=== PATIENT | female | born 1975 | race Two or more races ===

== ENCOUNTER 2024-07-25 18:54 | Emergency (ER) | payer MEDICAID, OTHER ==
[~2024-07-25] VITALS: Ht 167.6 cm; Wt 125.4 kg
[2024-07-25 20:49] VITALS: BP 143/81; PULSE 84; RESP 19; TEMP 97.6; O2SAT 99
--- NOTE | 2024-07-25 21:19 | ED.PDOC ---
Back pain HPI HPI Comments This is a 48-year-old female presents to the ED chief complaint acute on chronic low back pain. Patient states over the past week her back pain has gotten worse describes as by lower pain achy burning in nature nonradiating 8/10 on pain scale. She states history of chronic pain was supposed to follow up with her PCP however her PCP and has not follow up with another. He does report x-rays in the past, she was scheduled for an MRI but never obtained it. She does state she is currently homeless [place] with her son she does states the reason why her back pain is increase he is cautioned not lying on a bed and because of the cold weather. She denies any known injury, numbness, weakness, loss of bowel bladder control, or saddle anesthesia. She is taking Tylenol right now for the pain reports no relief. She states was on meloxicam in the past with little to no relief. Chief Complaint: Back Pain Time Seen by MD: 19:41 Reviewed Notes: Payroll Bookkeeper Notes, Medications, Allergies Allergies: Coded Allergies: Penicillins (Verified Allergy, Unknown, 07/25/24) Home Meds Active Scripts Methylprednisolone (Medrol Dosepak) 4 Mg [place], 4 MG PO UD for 6 Days, #21 TAB UAD Prov:ANUJA VALLE [facility] 07/25/24 Tizanidine Hydrochloride (Zanaflex) 4 Mg Cap, 1 CAP PO QPM PRN for 7 Days, #30 CAP Prov:ANUJA VALLE [facility] 07/25/24 Information Source: Patient Mode of Arrival: Ambulatory Constitutional: denies: chills, diaphoresis, fatigue, fever, malaise, sweats, weakness, others EENTM: denies: blurred vision, double vision, ear bleeding, ear discharge, ear drainage, ear pain, ear ringing, eye pain, eye redness, hearing loss, mouth pain, mouth swelling, nasal discharge, nose bleeding, nose congestion, nose pain, photophobia, tearing, throat pain, throat swelling, voice changes, others Respiratory: denies: cough, hemoptysis, orthopnea, SOB at rest, shortness of breath, SOB with excertion, stridor, wheezing, others Cardiovascular: denies: chest pain, dizzy spells, diaphoresis, Dyspnea on exertion, edema, irregular heart beat, left arm pain, lightheadedness, palpitations, PND, syncope, others Gastrointestinal: denies: abdomen distended, abdominal pain, blood streaked bowels, constipated, diarrhea, dysphagia, difficulty swallowing, hematemesis, melena, nausea, poor appetite, poor fluid intake, rectal bleeding, rectal pain, vomiting, others Genitourinary: denies: abnormal vagina bleeding, burning, dyspareunia, dysuria, flank pain, frequency, hematuria, incontinence, pain, , vagina discharge, urgency, others Neurological: denies: dizziness, fainting, headache, left sided numbness, left sided weakness, numbness, paresthesia, pre-existing deficit, right sided numbness, right sided weakness, seizure, speech problems, tingling, tremors, weakness, others Musculoskeletal: reports: back pain; denies: gout, joint pain, joint swelling, muscle pain, muscle stiffness, neck pain, others Integumetry: denies: bruises, change in color, change in hair/nails, dryness, laceration, lesions, lumps, rash, wounds, others Allergic/Immunocompromised: denies: Difficulty Healing, Frequent Infections, Hives, Itching, others Hematologic/Lymphatic: denies: anemia, blood clots, easy bleeding, easy bruising, swollen glands, others Endocrine: denies: excessive hunger, excessive sweating, excessive thirst, excessive urination, flushing, intolerance to cold, intolerance to heat, unexplained weight gain, unexplained weight loss, others Psychiatric: denies: anxiety, bipolar disorder, depression, hopeless, panic disorder, schizophrenia, sleepless, suicidal, others Physical Exam General Appearance: No Apparent Distress, Normal HEENT: Normal ENT Inspection, Pharynx Normal, TMs Normal Neck: Full Range of Motion, Non-Tender Respiratory: Lungs Clear, No Respiratory Distress, Normal Breath Sounds Cardiovascular: No Murmur, Normal Peripheral Pulses, Regular Rate/Rhythm Breast Exam: Deferred Gastrointestinal: No Organomegaly, Non Tender, No Pulsatile Mass, Normal Bowel Sounds, Soft Genitalia: Deferred Pelvic: Deferred Rectal: Deferred Extremities: Normal capillary refill, Normal inspection, Normal range of motion, Non-tender, Pedal edema (Bilateral nonpitting) Musculoskeletal : Location: Bilateral Extremity Location: Back (Moderate tenderness and spasms along paraspinal muscles L1 through L5. No noted abrasions, ecchymosis, lesions or lacerations. No tenderness palpated over L1 through L5 spine without crepitus or step-offs. Negative straight leg raise bilateral. Strength sensory and motion intact positive pedal pulses.) Apperance: Normal Neurologic: Alert, chicken boner II-XII nml as Tested, No Motor Deficits, Normal Affect, Normal Mood, No Sensory Deficits Cerebellar Function: Normal Reflexes: Normal Skin: Dry, Normal Color, Warm Lymphatic: No Adenopathy Was a procedure done? Was a procedure done?: No Back Pain Differential Dx Differential Diagnosis: Musculoskeletal Pain X-Ray, Labs, Meds, VS Vital Signs Date Time Temp Pulse Resp B/P (MAP) Pulse Ox O2 Delivery O2 Flow Rate FiO2 07/25/24 20:49 97.6 84 19 143/81 (101) 99 97.6 07/25/24 20:49 84 19 99 Room Air 07/25/24 19:24 98.1 82 16 111/75 (87) 97 Current Medications Medications (Trade) Dose Ordered Sig/Dain Route Start Time Stop Time Status Last Admin Ketorolac Tromethamine (Toradol Injection) 60 mg ONCE ONCE IM 07/25/24 21:30 07/25/24 21:31 DC 07/25/24 21:31 Acetaminophen/ Hydrocodone Bitart ([place] 5/325MG Tab) 1 tab ONCE ONCE PO 07/25/24 21:30 07/25/24 21:31 DC 07/25/24 21:30 X-Ray, Labs, Meds, VS Comment Patient given Toradol 60 mg IM and [place] 5 mg p.o.. Patient reports improvement in her pain and functioning. Patient requesting discharge at this time. We will discharge and send script for muscle relaxant. Also an anti-inflammatory. Advised to follow up and obtain a PCP for an MRI or consider following with pain management. Advised to return to the ER for increasing pain, numbness, weakness, loss of bowel or bladder control, or saddle anesthesia. Patient agrees with discharge plan of care. Time of 1ST Reevaluation: 22:27 Reevaluation 1ST: Improved Patient Education/Counseling: Diagnosis, Treatment, Prognosis, Need For Follow Up Family Education/Counseling: Diagnosis, Treatment, Prognosis, Need For Follow Up Departure 1 Departure Time of Disposition: 22:27 Impression: Primary Impression: Musculoskeletal pain Additional Impression: Lumbar sprain Qualified Codes: S33.5XXA - Sprain of ligaments of lumbar spine, initial encounter Disposition: HOME / SELF CARE / HOMELESS Condition: Stable e-Prescriptions Methylprednisolone (Medrol Dosepak) 4 Mg De[place] 4 MG PO UD for 6 Days, #21 TAB UAD Prov: ANUJA VALLE 07/25/24 Tizanidine Hydrochloride (Zanaflex) 4 Mg Cap 1 CAP PO QPM PRN for 7 Days, #30 CAP Prov: ANUJA VALLE 07/25/24 Discharged With: Other (Her son) Critical Care Note Critical Care Time?: No Stability Stability form required: No ANUJA VALLE Jul 25, 2024 21:19
[2024-07-25] MEDS: HYDROcodone-ACET 5/325MG TAB PO ONE (21:30)
[2024-07-25] MEDS: KETOROLAC TROMETH 60MG/2ML VIAL IM ONE (21:31)
[2024-07-25] MEDS ORDERED: TIZA4CAP PO (22:31)
[2024-07-25] MEDS ORDERED: METH4PAK PO (22:31)
== END 2024-07-25 22:44 | disposition home or self-care (01) ==
LOC: ER 18:54
DX: S33.5XXA Sprain of ligaments of lumbar spine, initial encounter (principal); G89.29 Other chronic pain; M79.18 Myalgia, other site; Z59.00 Homelessness unspecified; Z88.0 Allergy status to penicillin; X58.XXXA Exposure to other specified factors, initial encounter; Y93.89 Activity, other specified; Y92.89 Other specified places as the place of occurrence of the external cause; Y99.8 Other external cause status
CPT/HCPCS: 96372; 99283; J1885